=== PATIENT | female | born 1990 | race Caucasian/White ===

== ENCOUNTER → 2016-06-02 | Outpatient (CLI) | payer BC ==
[2016-06-02 10:22] LABS: HEMATOCRIT 32.1 % (37.0-47.0); MEAN CORPUSCULAR HEMOGLOBIN 30.3 PG (27-31); MEAN CORPUSCULAR HGB CONC 34.3 g/dL (33-37); MEAN CORPUSCULAR VOLUME 88.4 FL (81-99); MEAN PLATELET VOLUME 9.7 FL (7.4-12.2); RED BLOOD COUNT 3.63 10^6/uL (4.20-5.40)
== END ==
LOC: LAB 08:50
PROVIDERS: ATTEND Obstetrics & Gynecology
DX: Z36 Encounter for antenatal screening of mother (principal)
CPT/HCPCS: 36415; 82950; 85027

== ENCOUNTER 2016-08-07 19:42 | Outpatient (CLI) | payer BC ==
[2016-08-07] MEDS ORDERED: NORMAL SALINE 10 ML SYRINGE FLUSH IVP PRN (19:59)
[2016-08-07 20:04] VITALS: RESP 20; TEMP 98.1
[2016-08-07] MEDS ORDERED: Sodium Chloride 0.9% 1,000 ML PRIMARY IV ONE (20:30)
[2016-08-07 20:59] LABS: HEMATOCRIT 31.7 % (37.0-47.0); HEMOGLOBIN 10.9 g/dL (12.0-16.0); MEAN CORPUSCULAR HEMOGLOBIN 29.4 PG (27-31); MEAN CORPUSCULAR HGB CONC 34.4 g/dL (33-37); MEAN CORPUSCULAR VOLUME 85.4 FL (81-99); MEAN PLATELET VOLUME 10.1 FL (7.4-12.2); RED BLOOD COUNT 3.71 10^6/uL (4.20-5.40)
[2016-08-07 21:09] LABS: BLOOD UREA NITROGEN 9 mg/dL (7-22); CALCIUM 8.8 mg/dL (8.7-10.7); EST GLOMERULAR FILTRATION > 60 (>60 ml/min/1.73m(2)); SERUM ALBUMIN 3.5 g/dL (3.5-4.8)
[2016-08-07 21:43] LABS: BILIRUBIN,URINE SMALL (NEG); CLARITY,URINE CLOUDY (CLEAR); COLOR,URINE RED; GLUCOSE, URINE (UA) NEGATIVE (NEG); NITRATE,URINE NEGATIVE (NEG); OCCULT BLOOD,URINE LARGE (NEG); PH,URINE 5.5 (5.0-8.5); PROTEIN,URINE 100 mg/dl (NEG); UROBILINOGEN,URINE 0.2 EU/dL (0.2)
[2016-08-07 21:46] LABS: RBC,URINE >100 /hpf; SQUAMOUS EPITHELIAL CELL,UR FEW; URINE SAMPLE TYPE CLEAN CATCH URINE; WBC,URINE 15-20
[2016-08-07 21:47] LABS: BACTERIA,URINE FEW
[2016-08-07] MEDS ORDERED: Sodium Chloride 0.9% 1,000 ML IV SCH (22:00)
[2016-08-07 23:01] LABS: BILIRUBIN,URINE NEGATIVE (NEG); CLARITY,URINE CLEAR (CLEAR); COLOR,URINE YELLOW; GLUCOSE, URINE (UA) NEGATIVE (NEG); NITRATE,URINE NEGATIVE (NEG); OCCULT BLOOD,URINE MODERATE (NEG); PH,URINE 5.5 (5.0-8.5); PROTEIN,URINE NEGATIVE (NEG); UROBILINOGEN,URINE 0.2 mg/dL (0.2)
[2016-08-07 23:06] LABS: URINE SAMPLE TYPE CATH SPECIMEN
[2016-08-07 23:07] LABS: SQUAMOUS EPITHELIAL CELL,UR RARE; WBC,URINE 0-1
[2016-08-07] MEDS ORDERED: Promethazine Tab 25 MG TAB PO PRN (23:11)
[2016-08-07] MEDS ORDERED: Promethazine Tab 25 MG TAB PO ONE (23:30)
--- NOTE | 2016-08-08 16:12 | PDOC(PROG) ---
Intake - - Reason for Visit/Chief Complaint: Cramping, Nausea and Vomiting Admitted From: Home - LMP: 11/15/15 Estimated Due Date: 08/24/16 Gestational Age in Weeks and Days: 37 Weeks and 5 Days : 1 Para: 0 - Labs Blood Type and Rh: A+ Group B Strep: Negative Hepatitis B Surface Antigen: Absent HIV: Negative Rubella Status: Immune VDRL/RPR: Absent Maternal - Vital Signs Last Taken Vital Signs: Vital Signs - Last Taken Temperature 98.1 F 08/07/16 19:59 Pulse Rate 94 08/07/16 19:59 Respiratory Rate 20 08/07/16 19:59 Blood Pressure 122/76 08/07/16 19:59 Pulse Ox 97 08/07/16 19:59 - Uterine Activity Uterine Contraction Monitor Mode: External Contraction Frequency(minutes): 3 Contraction Duration (seconds): 70-100 Uterine Contraction Pattern: Irregular Uterine Tone Measurement Phase: Resting Uterine Contraction Intensity: Moderate - Cervical Exam Cervical Dilation (cm): 2-3 Cervical Effacement Percentage: 50 Station: -2 Exam Performed By: Mariama RN - Vaginal Discharge Vaginal Bleeding Amount: None Vaginal Discharge Amount: None Monitoring - Uterine Activity Uterine Contraction Monitor Mode: External Contraction Frequency(minutes): 3 Contraction Duration (seconds): 70-100 Uterine Contraction Pattern: Irregular Uterine Tone Measurement Phase: Resting Uterine Contraction Intensity: Moderate Gayle Score - Gayle Score Cervical Dilation: 1-2 cm Cervical Effacement: 40-50% Station: -2 Cervical Consistency: Moderate Cervical Position: Posterior Gayle Score Total: 4 Results - Labs CBC and BMP: 08/07/16 20:57 08/07/16 20:57 - Bedside Testing Bedside Urine Ketone: Large Bedside Urine Leukocytes Esterase: Small Bedside Urine Nitrite: Negative Bedside Urine Occult Blood: Negative Bedside Urine Protein: Trace Bedside Specific [place]: 1.030 Assessment and Plan - Assessment / Plan Additional Assessment/Plan Details: Assessment: IUP 37-5/7 weeks who presented to labor and delivery with the complaint of nausea, vomiting, loose stools all day long. No fever. Baby was moving. Patient was not able to keep food down. Minimal liquids down. According to the nurse, the patient's abdomen was gravid but not tender to palpation. The patient presented to labor and delivery and an IV was started. IV normal saline 1 L was administered over the first hour then IV normal saline 1 L over the next 2 hours then D5 LR was administered at 1 50 mL per hour. A CBC, CMP, amylase and lipase and a midstream clean catch urine was obtained. White count was normal. Amylase and lipase as well as liver function tests were normal. The patient had mild anemia by her H&H. Platelets were normal. The midstream clean catch urine showed red blood cells and white blood cells and some epithelial cells. This was completed after the cervical check which was 2-3 cm/ 50/-2 cephalic and the cervix was posterior. Therefore a catheter urine specimen was obtained for a UA with micro-and this showed minimal red blood cells and white blood cells on the microscopic. Therefore the patient was not treated for UTI. Urine culture is pending but this is from the midstream clean catch which was contaminated. The patient had continuous monitoring which showed contractions that the patient did not have significant discomfort with. The contractions were every 5 minutes and then slightly more frequently and every 2-4 minutes but the patient could not palpate these well. The patient stated that they were not uncomfortable. There were good accelerations and no decelerations per the nurse 's evaluation of the continuous monitoring. The nurse and I spoke several times while the patient was there and the nurse contacted me when the catheter urine specimen urinalysis with micro-was resulted. The patient was feeling much better and during the entire hospitalization the patient had no emesis and no loose stool. The patient desired to go home. The patient was discharged home with strict precautions. Labor precautions and precautions if not drinking fluids well. The patient was also sent home with promethazine 25 mg 1 tablet by mouth every 6 hours when necessary nausea. Two tablets were dispensed to the patient from labor and delivery. No refills. The patient's IV was discontinued. The patient was encouraged to contact her physician in [place], [place] or the physician covering for her physician if the patient's symptoms worsened. The patient was encouraged to contact the labor and delivery in [place], [place] since the patient wanted to deliver in [place], [place] and had been seeing a physician in [place], [place] for her OB care.
== END 2016-08-07 23:30 | disposition home or self-care (01) ==
LOC: OBOP 19:42
PROVIDERS: ATTEND Obstetrics & Gynecology
DX: O26.893 Other specified pregnancy related conditions, third trimester (principal); R25.2 Cramp and spasm; R11.2 Nausea with vomiting, unspecified; Z3A.37 37 weeks gestation of pregnancy
CPT/HCPCS: 59025; 80053; 81001; 81003; 82150; 83690; 85027; 87088; 99211; Q0169; 96360; 96361; J7030